=== PATIENT | female | born 1990 ===

== ENCOUNTER 2024-09-04 06:20 | Day surgery (SDC) | payer BC, SELFPAY ==
[2024-08-22 10:50] LABS: % Basophils 0.6 % (0-2); % Eosinophils 2.8 % (0-6); % Lymphocytes 28.6 % (20.5-51.1); % Monocytes 6.3 % (1.7-9.3); % Neutrophils 61.7 % (42.2-75.2); Absolute Eosinophils 0.2 10^3/uL (0-0.7); Absolute Lymphocytes 1.8 10^3/uL (1.2-3.4); Absolute Monocytes 0.4 10^3/uL (0.1-0.6); Absolute Neutrophils 3.9 10^3/uL (1.4-6.5); Hematocrit 39.5 % (37.0-47.0); Hemoglobin 13.3 g/dL (12.0-16.0); Mean Corp Hgb Conc. 33.7 g/dL (33.0-37.0); Mean Corpuscular Hgb 30.2 pg (27.0-31.0); Mean Corpuscular Volume 89.8 fL (81.0-99.0); Mean Platelet Volume 9.4 fL (7.4-10.4); Nucleated Red Blood Cells % 0 %; Platelet Count 306 10^3/uL (130-400); Red Cell Dist. Width 13.2 % (11.5-14.5); White Blood Cell Count 6.3 10^3/uL (4.8-10.8)
[2024-08-22 11:02] LABS: INR 0.96; PT 13.1 Sec (11.4-14.6)
[2024-08-22 11:03] LABS: APTT 29.7 Sec (23.4-35.0)
[2024-08-22 12:47] VITALS: BMI 23.5
[2024-09-04] VITALS (9 sets, daily range): BP systolic 103–134; BP diastolic 60–80; BMI 23.5
[2024-09-04 08:24] LABS: HCG, Urine Qualitative Screen Negative
[2024-09-04] MEDS: TYLENOL 1000 MG PO (08:26)
[2024-09-04] MEDS: NORMOSOL-R/PLASMALYTE-A 1000 IV (08:27)
== END 2024-09-04 11:40 | disposition home or self-care (01) ==
LOC: SDS 06:20
PROVIDERS: ATTENDING PHYSICIAN Obstetrics & Gynecology; FAMILY PHYSICIAN Family Medicine
PROC: 0UT74ZZ Resection of Bilateral Fallopian Tubes, Percutaneous Endoscopic Approach (ICD-10-PCS; 2024-09-04)
DX: Z30.2 Encounter for sterilization (principal); N83.8 Other noninflammatory disorders of ovary, fallopian tube and broad ligament; F32.A Depression, unspecified; F41.9 Anxiety disorder, unspecified; Z79.899 Other long term (current) drug therapy
CPT/HCPCS: 58661; 88302; 36415; 81025; 85025; 85610; 85730; C1776

== ENCOUNTER → 2024-11-03 15:33 | Outpatient (REF) | payer BC, SELFPAY | LOC: HWRAD 15:33 | PROVIDERS: ATTENDING PHYSICIAN Family Medicine | DX: M54.16 Radiculopathy, lumbar region (principal) | CPT/HCPCS: 72110 ==